=== PATIENT | female | born 1995 ===

== ENCOUNTER → 2022-08-19 | Outpatient (CLI) | payer SELFPAY | END | disposition home or self-care (01) | LOC: LAB SHORT 16:23 | DX: J02.9 Acute pharyngitis, unspecified (principal); L08.9 Local infection of the skin and subcutaneous tissue, unspecified | CPT/HCPCS: 87070; 87081; 87205 ==

== ENCOUNTER → 2023-06-08 | Outpatient (CLI) | payer BC | LOC: LAB 10:21 → LAB SHORT 10:21 | DX: R30.0 Dysuria (principal) | CPT/HCPCS: 87086 ==

== ENCOUNTER → 2025-04-12 | Outpatient (CLI) | payer BC | LOC: LAB SHORT 17:48 → LAB 17:48 | DX: Z34.91 Encounter for supervision of normal pregnancy, unspecified, first trimester (principal) | CPT/HCPCS: 84702 ==